=== PATIENT | female | born 1955 | race African-American/Black ===

== ENCOUNTER 2019-04-13 12:07 | Outpatient (CLI) | payer OTHER, SELFPAY ==
--- NOTE | ~2019-04-13 | MM_ITS ---
EXAMINATION: MM screening jewel BI w nela HISTORY: Screening mammogram TECHNIQUE: Craniocaudal and mediolateral oblique 3-D tomosynthesis images were obtained and synthetic 2-D images were generated. CAD analysis was submitted and interpreted. COMPARISON: 11/25/2018 left stereotactic biopsy 04/17/2018 bilateral diagnostic digital mammogram 01/24/2016 outside mammogram BREAST PARENCHYMAL COMPOSITION: The breasts are heterogeneously dense, which may obscure small masses . FINDINGS: Scattered bilateral benign calcifications. There is no evidence of suspicious mass, calcifi cation, or architectural distortion to suggest malignancy in either breast. There has been no suspici ous interval change. IMPRESSION: 1. No mammographic evidence of malignancy. 2. Recommend routine screening mammography in one year. BI-RADS Category 2: Benign finding(s). Reviewed, dictated and finalized at location A. P STICKER
== END 2019-04-13 12:08 | disposition home or self-care (01) ==
PROVIDERS: PCP Physician Assistant; Visit Provider Obstetrics & Gynecology
DX: Z12.31 Encounter for screening mammogram for malignant neoplasm of breast (principal)
CPT/HCPCS: 77063; 77067

== ENCOUNTER 2020-10-12 15:00 | Outpatient (CLI) | payer MEDICARE, MEDICAID, SELFPAY ==
--- NOTE | ~2020-10-12 | MM_ITS ---
EXAMINATION: MM screening jewel BI w nela HISTORY: Screening TECHNIQUE: Craniocaudal and mediolateral oblique 3-D tomosynthesis images were obtained and synthetic 2-D images were generated. CAD analysis was submitted and interpreted. COMPARISON: Comparison to multiple prior studies sequentially, with oldest reviewed study dated 03/12. BREAST PARENCHYMAL COMPOSITION: The breasts are heterogeneously dense, which may obscure small masses . FINDINGS: There are developing asymmetries in the left breast. The right breast is stable without ronna dence for malignancy. IMPRESSION: 1. Developing left breast asymmetries. 2. Additional mammographic views and possible breast ultrasound are recommended. BI-RADS Category 0: Incomplete: Needs additional imaging evaluation. Reviewed, dictated and finalized at location A. IMPRESSION: 1. Developing left breast asymmetries. 2. Additional mammographic views and possible breast ultrasound are recommended . BI-RADS Category 0: Incomplete: Needs additional imaging evaluation.
== END 2020-10-12 15:01 | disposition home or self-care (01) ==
LOC: ANHIMG 15:10
PROVIDERS: PCP Physician Assistant; Visit Provider Obstetrics & Gynecology
DX: Z12.31 Encounter for screening mammogram for malignant neoplasm of breast (principal); R92.8 Other abnormal and inconclusive findings on diagnostic imaging of breast
CPT/HCPCS: 77063; 77067

== ENCOUNTER 2020-11-02 13:00 | Outpatient (CLI) | payer MEDICARE, MEDICAID, SELFPAY ==
--- NOTE | ~2020-11-02 | MMUS_ITS ---
EXAMINATION: MM diagnostic jewel LT w nela, US breast LT complete HISTORY: Developing left breast asymmetries reported on 10/12/2020 bilateral screening mammogram TECHNIQUE: Additional 3-D tomosynthesis images of the left breast were performed and synthetic 2-D im ages were generated. CAD analysis was submitted and interpreted. High resolution complete left breast ultrasound was performed. COMPARISON: 10/12/2020 bilateral digital screening mammogram FINDINGS: MAMMOGRAPHIC FINDINGS: There are scattered benign calcifications. No suspicious mass, architectural distortion or malignant calcifications are noted. ULTRASOUND: There is no evidence of abnormal solid or cystic lesion or shadowing of the left breast. IMPRESSION: 1. No mammographic evidence of malignancy 2. Routine mammographic screening is recommended. BI-RADS Category 2: Benign finding(s). Reviewed, dictated and finalized at location A. IMPRESSION: 1. No mammographic evidence of malignancy 2. Routine mammographic screening is recommended. BI-RADS Category 2: Benign finding(s).
== END 2020-11-02 13:01 | disposition home or self-care (01) ==
LOC: ANHIMG 13:04
PROVIDERS: PCP Physician Assistant; Visit Provider Obstetrics & Gynecology
DX: R92.8 Other abnormal and inconclusive findings on diagnostic imaging of breast (principal)
CPT/HCPCS: 76641; 77061; 77065; G0279

== ENCOUNTER 2022-01-08 11:03 | Emergency (ER) | payer MEDICARE, SELFPAY ==
[2022-01-08] VITALS (8 sets, daily range): BP systolic 189–260; BP diastolic 80–97; PULSE 76–82; RESP 18–20; TEMP 36.6; O2SAT 99–100
[2022-01-08 11:54] LABS: Influenza A QL RT-PCR Negative (Negative); Influenza B QL RT-PCR Negative (Negative); SARS-CoV-2 RNA PCR Positive
--- NOTE | 2022-01-08 16:55 | ECG_ITS ---
Measurements Intervals [place] Rate: 69 P: 73 KS: 163 QRS: 57 QRSD: 84 T: 45 QT: 401 QTc: 431 Interpretive Statements SINUS RHYTHM VENTRICULAR PREMATURE COMPLEX POSSIBLE LEFT ATRIAL ENLARGEMENT CANNOT RULE OUT SEPTAL INFARCT, AGE INDETERMINATE ST-T WAVE ABNORMALITY IN ANTEROLAT/INF LEADS- CONSIDER ISCHEMIA BASELINE ARTIFACT- AVL, AVF ABNORMAL ECG NO PREVIOUS ECG AVAILABLE FOR COMPARISON Electronically Signed On 01-08-2022 22:57:59 SPOILAGE WORKER by Ugo Lopez D.O.
[2022-01-08 17:20] LABS: Basophils Percent Auto 0.7 % (0.2-1.2); Hematocrit 38.2 % (37.0-47.0); Hemoglobin 12.6 g/dL (12.0-15.0); Immature Granulocyte Absolute 0.01 K/mm3 (0.00-0.031); Immature Granulocyte Percent A 0.2 % (0-0.5); Lymphocytes Absolute Auto 1.58 K/mm3 (0.9-3.2); Lymphocytes Percent Auto 36.1 % (18.3-44.2); Mean Corpuscular Hemoglobin 27.3 pg (26-34); Mean Corpuscular Volume 82.9 fl (80-100); Mean Platelet Volume 10.5 fl (7.4-10.4); Monocytes Absolute Auto 0.9 K/mm3 (0.1-0.6); Monocytes Percent Auto 19.9 % (2.6-8.5); Neutrophils Absolute Auto 1.9 K/mm3 (1.3-6.7); Neutrophils Percent Auto 43.1 % (45.5-73.1); Platelet Count Result 266 k/mm3 (150-375); Red Blood Count 4.61 M/mm3 (4.2-5.4); Red Cell Distribution Width 15.7 % (11.5-14.5); White Blood Count 4.4 K/mm3 (4.5-10.0)
[2022-01-08] MEDS: ACETAMINOPHEN 500 MG TABLET 1000 MG PO (17:28)
[2022-01-08] MEDS: IBUPROFEN 400 MG TABLET 800 MG PO (17:29)
[2022-01-08] MEDS: AMOXICILLIN/CLAVULANATE K 875-125 MG TAB 1 TABLET PO (17:29)
--- NOTE | 2022-01-08 17:29 | ED.GENADULT ---
HPI - General Adult General Chief complaint: Recheck/Abnormal Lab/Rx Stated complaint: HTN, headache Time Seen by Provider: 01/08/22 16:38 History of Present Illness HPI narrative: This is a 66-year-old female with history of hypertension presenting to ED for elevated Blood pressure. The patient originally gone to a Urgent Care to be evaluated for headache, body aches and subjective fevers. That time she was found have a blood pressure that was severely elevated and was sent to the ER for further evaluation. This time patient is complaining of her flu-like symptoms. She denies chest pain, shortness of breath, nausea vomiting diarrhea, numbness tingling weakness to any extremity. Patient takes losartan and clonidine for her blood pressure. She has not seen her primary care physician in 4-5 months. Patient took her daily medications at 10:30 a.m. at the urgent care. patient is also complaining of dental pain in her bottom right molar. Patient has poor dentition. She is trying to see a dentist. Related Data Allergies Allergy/AdvReac Type Severity Reaction Status Date / Time codeine Allergy Unknown Verified 01/08/22 16:33 erythromycin base Allergy Unknown Verified 01/08/22 16:33 [From Erythrocin] propoxyphene [From Darvon] Allergy Unknown Verified 01/08/22 16:33 wool Allergy Unknown Verified 01/08/22 16:33 Review of Systems Review of Systems: CONSTITUTIONAL: Denies night sweats. EYES: No eye pain ENT: Denies rhinorrhea CARDIOVASCULAR: Denies palpitations RESPIRATORY: Denies hemoptysis GASTROINTESTINAL: Denies hematemesis GENITOURINARY: Denies hematuria. SKIN: Denies rash MUSCULOSKELETAL: Denies myalgia. NEUROLOGIC: Denies weakness. PSYCHIATRIC: Denies delusions [facility] Social History Social History Social History: Denies alcohol or tobacco use, smokes marijuana occasionally Exam Narrative: APPEARANCE: No apparent distress. patient is blind pleasant during the interview Head: atraumatic. patient has poor dentition, her bottom right molar is rotten, no area of fluctuance or evidence of abscess EYES: EOMI, NOSE: Atraumatic NECK: Trachea midline RESPIRATORY: No increased rate of breathing, clear to auscultation in all alonso CARDIOVASCULAR: RRR, no peripheral edema ABDOMINAL: Non-distended MUSCULOSKELETAl: No obvious deformities NEURO: Alert. Moving 4/4 extremities SKIN:: Warm, dry. Normal color PSYCHIATRIC: Normal affect Course Vital Signs Vital signs: Vital Signs Temperature 97.8 F 01/08/22 11:08 Pulse Rate 82 01/08/22 11:08 Respiratory Rate 20 01/08/22 11:08 Blood Pressure 260/90 H 01/08/22 11:08 Pulse Oximetry 99 01/08/22 11:08 Oxygen Delivery Room Air 01/08/22 11:08 Temperature 97.9 F 01/08/22 14:50 Pulse Rate 80 01/08/22 16:34 Respiratory Rate 18 01/08/22 16:34 Blood Pressure 197/80 H 01/08/22 19:32 Pulse Oximetry 100 01/08/22 16:34 Oxygen Delivery Room Air 01/08/22 11:08 Medical Decision Making MDM Narrative Medical decision making narrative: this is a 66-year-old female presenting ED for flu like symptoms. She is also found to have severely elevated blood pressure. A screening EKG was ordered which showed nonspecific ST changes. Basic lab work and a troponin ordered to evaluate for end-organ injury. EKG interpretation: Rhythm [sinus], Rate 69, Stow -[normal], MI -[normal], QRS [narrow], QTC [normal], T waves -[negative for concerning inversions], ST Segments - ST depressions in V 4 through V6 Final interpretations: normal sinus rhythm and nonspecific T-wave abnormalities and occasional premature beats. BMP showed a potassium of 3.0 which was repleted. There is no evidence of acute kidney injury at this time. Troponin was 0.012. This time patient has asymptomatic hypertension with no evidence of end-organ damage. She will be discharged with prescription for hydrochlorothia
[2022-01-08 17:32] LABS: Anion Gap 11 mmol/L (8-16); Blood Urea Nitrogen 9 mg/dL (7-17); Carbon Dioxide 25 mmol/L (22-30); Chloride 103 mmol/L (98-107); Estimated CRCL calculation 88 ml/min; Estimated Glomerular Filt Rate > 60; Glucose 91 mg/dL (65-110); Sodium 139 mmol/L (137-145)
[2022-01-08] MEDS: POTASSIUM CHLORIDE 20 MEQ TABLET 40 MEQ PO (18:17)
[2022-01-08] MEDS: hydroCHLOROthiazide 25 MG TABLET PO (18:47)
[2022-01-08 19:44] LABS: Troponin I < 0.012 ng/mL (0.000-0.034)
== END 2022-01-08 20:36 | disposition home or self-care (01) ==
PROVIDERS: Emergency Medicine; Emergency Provider Emergency Medicine; PCP Physician Assistant
DX: U07.1 COVID-19 (principal); I10 Essential (primary) hypertension; K02.9 Dental caries, unspecified; I49.3 Ventricular premature depolarization; R94.31 Abnormal electrocardiogram [ECG] [EKG]
CPT/HCPCS: 36415; 80048; 84484; 85025; 87636; 93005; 99284; A9270

== ENCOUNTER 2022-01-24 10:32 | Outpatient (CLI) | payer MEDICARE, MEDICAID, SELFPAY ==
--- NOTE | ~2022-01-24 | XR_ITS ---
Clinical Indication: Hypertension PA and lateral views of the chest: Comparison: None Findings: The lungs are clear, without evidence of focal consolidation or pleural effusion. Cardiome diastinal silhouette is within normal limits. Bones and soft tissues are unremarkable. Impression: Normal chest. Reviewed, dictated and finalized at location [] GRADING SUPERVISOR Impression: Normal chest.
--- NOTE | ~2022-01-24 | MM_ITS ---
EXAMINATION: MM screening jewel BI w nela HISTORY: Screening TECHNIQUE: Craniocaudal and mediolateral oblique 3-D tomosynthesis images were obtained and synthetic 2-D images were generated. CAD analysis was submitted and interpreted. COMPARISON: Comparison to multiple prior studies sequentially, with oldest reviewed study dated 11/10. BREAST PARENCHYMAL COMPOSITION: The breasts are heterogeneously dense, which may obscure small masses . FINDINGS: Stable benign-appearing bilateral breast calcifications. There is no evidence of suspicious mass, calcification, or architectural distortion to suggest malignancy in either breast. There has b een no suspicious interval change. IMPRESSION: 1. No mammographic evidence of malignancy. 2. Recommend routine screening mammography in one year. BI-RADS Category 2: Benign finding(s). Reviewed, dictated and finalized at location B. PI DEVELOPER
== END 2022-01-24 10:33 | disposition home or self-care (01) ==
PROVIDERS: PCP Emergency Medicine; Visit Provider Emergency Medicine
DX: Z12.31 Encounter for screening mammogram for malignant neoplasm of breast (principal); I10 Essential (primary) hypertension
CPT/HCPCS: 71046; 77063; 77067

== ENCOUNTER 2022-02-19 13:33 | Outpatient (CLI) | payer MEDICARE, MEDICAID, SELFPAY ==
--- NOTE | ~2022-02-19 | DEXA_ITS ---
Bone Density Report Name: GALEN METZGER Age: 66 Sex: Female Ethnicity: White Date of : 1955 Indication: postmenopausal; screening for osteoporosis; height loss; Referring Provider: CAITLIN, ANAIS Zambrano Study: Bone densitometry was performed. Exam Date: February 19, 2022 Accession number: [id number] Bone Density: Region BMD T-score Z-score Classification AP Spine(L1-L4) 1.182 1.2 3.1 Normal Femoral Neck (Left) 0.921 0.6 2.2 Normal Total Hip (Left) 1.050 0.9 2.2 Normal Femoral Neck (Right) 0.950 0.9 2.5 Normal Total Hip (Right) 1.062 1.0 2.3 Normal Total Hip Mean 1.056 1.0 2.3 Normal World Health Organization criteria for BMD impression classify patients as: Normal (T-score at or above -1.0), Osteopenia (T-score between -1.0 and -2.5), or Osteoporosis (T-score at or below -2.5). Clinical Information Provided by Patient: Patient maximum height was 62.5 Menopause Age: 36 No regular weight bearing exercise Onset of menses at age 10 Number of children 1 Impression: The patient has normal bone mass. Discussion: LOW RISK OF FRACTURE; BONE DENSITY IS WELL ABOVE THE MINIMUM DESIRABLE LEVEL AND ABOVE AVERAGE FOR AGE AND SEX AT ALL SKELETAL SITES TESTED. This person's bone density is above expected limits for age and sex. This is rarely clinically significant, but should be pursued if there are significant musculoskeletal complaints. The patient should follow a healthful lifestyle (good nutrition with adequate calcium and vitamin D, and appropriate weight-bearing exercise). Follow-Up: Consider repeating this study in 5 years or sooner if there is some new clinical indication. Reported by: MICHELLE on 02/19/2022 2:14:00 PM. Reviewed, dictated and finalized at location ARhys [facility]IT[facility]
== END 2022-02-19 13:34 | disposition home or self-care (01) ==
PROVIDERS: PCP Emergency Medicine; Visit Provider Nurse Practitioner
DX: Z78.0 Asymptomatic menopausal state (principal)
CPT/HCPCS: 77080

== ENCOUNTER 2022-03-15 14:08 | Outpatient (CLI) | payer MEDICARE, MEDICAID, SELFPAY ==
--- NOTE | ~2022-03-15 | XR_ITS ---
EXAMINATION: XR knee LT min 4V DATE: 03/15/2022 14:42 INDICATION: Left knee pain. TECHNIQUE: 4 views of left knee including standing views were obtained. COMPARISON: None. FINDINGS: Bone alignment is normal. No fracture. There is mild tricompartmental osteoarthritis. No kn ee joint effusion. IMPRESSION: 1. Mild left knee osteoarthritis. Reviewed, dictated and finalized at location A. EDUCATOR
[2022-03-15 15:54] LABS: Creatinine Urine 112.7 mg/dL
[2022-03-15 16:03] LABS: MALB Creatinine Ratio 6.8 mg/g (0-30); Microalbumin Urine Random 7.7 mg/L (0-16.7)
== END 2022-03-15 14:09 | disposition home or self-care (01) ==
PROVIDERS: PCP Emergency Medicine; Visit Provider Emergency Medicine
DX: M25.562 Pain in left knee (principal); R82.998 Other abnormal findings in urine; M17.12 Unilateral primary osteoarthritis, left knee
CPT/HCPCS: 73564; 82043

== ENCOUNTER 2023-10-24 11:50 | Outpatient (CLI) | payer MEDICARE, SELFPAY ==
[2023-10-24 13:08] LABS: Hematocrit 39.8 % (37.0-47.0); Hemoglobin 12.7 g/dL (12.0-15.0); Mean Corpuscular HGB Conc 31.9 g/dl (32-36); Mean Corpuscular Hemoglobin 27.1 pg (26-34); Mean Corpuscular Volume 84.9 fl (80-100); Mean Platelet Volume 9.7 fl (7.4-10.4); Platelet Count Result 315 k/mm3 (150-375); Red Blood Count 4.69 M/mm3 (4.2-5.4); Red Cell Distribution Width 15.2 % (11.5-14.5); White Blood Count 5.8 K/mm3 (4.5-10.0)
[2023-10-24 13:16] LABS: Add Urine Microscopic? YES; Appearance Urine Cloudy (Clear); Bacteria Urine 4+ /hpf; Bilirubin Urine Negative (Negative); Blood Urine Negative (Negative); Color Urine Dark Yellow (Yellow); Glucose Urine UA Negative (Negative); Ketones Urine Trace mg/dL (Negative); Leukocyte Esterase Ur 1+ LEU/UL (Negative); Need Manual Microscopic Reviewed; Nitrate Urine Positive (Negative); Protein Urine Trace mg/dL (Negative); Specific Grav Ur 1.026 (1.001-1.035); Squamous Epithelial Cell Urine Moderate /hpf (Few); pH Urine 5.5 (5.0-9.0)
[2023-10-24 13:17] LABS: Alanine Aminotransferase 17 U/L (6-35); Albumin Level 4.4 g/dL (3.5-5.1); Alkaline Phosphatase 95 U/L (38-126); Anion Gap 7 mmol/L (4-12); Aspartate Amino Transferase 24 U/L (14-36); Bilirubin,Total 0.4 mg/dL (0.2-1.3); Blood Urea Nitrogen 11 mg/dL (7-17); Calcium 9.3 mg/dL (8.4-10.2); Carbon Dioxide 30 mmol/L (22-30); Chloride 103 mmol/L (98-107); Cholesterol 205 mg/dL (0-200); Estimated Glomerular Filt Rate > 60; Glucose 100 mg/dL (65-110); HDL Direct 60 mg/dL; Potassium 4.6 mmol/L (3.4-5.0); Sodium 140 mmol/L (137-145); Triglycerides 97 mg/dL (<150)
[2023-10-24 13:28] LABS: LDL Cholesterol Direct 115 mg/dL
[2023-10-24 13:54] LABS: Creatinine Urine 354.1 mg/dL
[2023-10-24 14:03] LABS: Microalbumin Urine Random 17.6 mg/L (0-16.7)
[2023-10-24 14:25] LABS: Free T4 Free Thyroxine 1.02 ng/mL (0.78-2.19)
== END 2023-10-24 11:51 | disposition home or self-care (01) ==
LOC: ANHLAB 12:08
PROVIDERS: PCP Emergency Medicine; Visit Provider Emergency Medicine
DX: E78.5 Hyperlipidemia, unspecified (principal); I10 Essential (primary) hypertension; Z00.00 Encounter for general adult medical examination without abnormal findings
CPT/HCPCS: 36415; 80053; 80061; 81001; 82043; 84439; 84443; 85027

== ENCOUNTER 2023-11-04 15:49 | Outpatient (CLI) | payer MEDICARE, SELFPAY ==
--- NOTE | ~2023-11-04 | US_ITS ---
EXAMINATION: US venous doppler [facility] DATE: 11/04/2023 17:03 INDICATION: Bilateral lower limb pain TECHNIQUE: Grayscale ultrasound images without and with compression and Doppler ultrasound images of the bilateral lower extremity veins were obtained. COMPARISON: None. FINDINGS: The visualized portions of right common femoral vein, profunda (deep) femoral vein, femoral vein, pop liteal vein, posterior tibial veins, peroneal veins, gastrocnemius vein and greater saphenous vein ou tflow are patent. The visualized portions of left common femoral vein, profunda femoral vein, femoral vein, popliteal v ein, posterior tibial veins, peroneal veins, gastrocnemius vein and greater saphenous vein outflow ar e patent. IMPRESSION: 1. No deep venous thrombosis in either lower limb. Reviewed, dictated and finalized at location A.
== END 2023-11-04 15:50 | disposition home or self-care (01) ==
PROVIDERS: PCP Emergency Medicine; Visit Provider Emergency Medicine
DX: M79.661 Pain in right lower leg (principal); M79.662 Pain in left lower leg
CPT/HCPCS: 93970

== ENCOUNTER 2024-01-02 08:58 | Outpatient (CLI) | payer MEDICARE, SELFPAY ==
--- NOTE | ~2024-01-02 | MR_ITS ---
EXAMINATION: MR knee LT wo con DATE: 01/02/2024 09:57 INDICATION: Left knee pain. TECHNIQUE: Magnetic resonance imaging (MRI) of the left knee was performed without intravenous contra st. Sequences included axial PD-weighted FS FSE, coronal PD-weighted FSE and PD-weighted FS FSE, sagi ttal PD-weighted FSE, and sagittal T2-weighted FS FSE. COMPARISON: Left knee radiographs 12/18/23 FINDINGS: Medial compartment: There is a complex tear involving anterior and posterior horns of medial meniscus. There is deep part ial-thickness cartilage loss of femoral condyle, worst at the central articular surface. There is susannah p partial-thickness cartilage loss of tibial condyle, worst at the central articular surface. Osteoph ytes are noted. Lateral compartment: Lateral meniscus is normal. There is shallow partial-thickness cartilage loss of tibial condyle. Ther e is cartilage surface irregularity of femoral condyle. Osteophytes are noted. Patellofemoral compartment: There is shallow partial-thickness cartilage loss of the patellar medial and lateral facets and media n ridge. There is shallow partial-thickness cartilage loss of trochlea. Osteophytes are noted. Ligaments and tendons: The anterior and posterior cruciate ligaments are normal. Medial collateral ligament is normal. There are changes of prior sprains of medial collateral ligament and fibular collateral ligament character ized by thickening and increased signal intensity proximally. There is mild patellar tendinopathy. Fluid: There is a small knee joint effusion. There is a small ruptured Badillo's cyst. There is mild prepatell ar and superficial infrapatellar bursitis. IMPRESSION: 1. Moderate chondrosis of medial compartment and mild chondrosis of lateral and patellofemoral compar tments. 2. Tear of medial meniscus. 3. Small knee joint effusion. 4. Small ruptured Badillo's cyst. Reviewed, dictated and finalized at location A. OPRACTIC CARE IMPRESSION: 1. Moderate chondrosis of medial compartment and mild chondrosis of lateral and patellofemoral compartments. 2. Tear of medial meniscus. 3. Small knee joint effusion. 4. Small ruptured Badillo's cyst.
== END 2024-01-02 08:59 | disposition home or self-care (01) ==
LOC: GOSHIMG 09:11
PROVIDERS: Visit Provider Orthopaedic Surgery
DX: M22.42 Chondromalacia patellae, left knee (principal); S83.242A Other tear of medial meniscus, current injury, left knee, initial encounter; X58.XXXA Exposure to other specified factors, initial encounter; M25.462 Effusion, left knee; M66.0 Rupture of popliteal cyst
CPT/HCPCS: 73721